=== PATIENT | female | born 1995 | race Caucasian/White ===

== ENCOUNTER 2021-01-19 11:33 | Day surgery (SDC) | payer OTHER ==
[2021-01-18 10:32] VITALS: BMI 35.9
[2021-01-19] MEDS ORDERED: Lidocaine 1% MPF 2 ML VIAL ONE (11:38)
[2021-01-19] MEDS ORDERED: PROPOFOL 20 ML ONE ×2 (13:50)
== END 2021-01-19 14:50 | disposition home or self-care (01) ==
LOC: CSHSDC 11:33
PROVIDERS: ATTEND Internal Medicine
PROC: 0DB68ZZ Excision of Stomach, Via Natural or Artificial Opening Endoscopic (ICD-10-PCS; principal; 2021-01-19)
DX: K21.9 Gastro-esophageal reflux disease without esophagitis (principal); K31.7 Polyp of stomach and duodenum; Z79.899 Other long term (current) drug therapy; E78.00 Pure hypercholesterolemia, unspecified; Z87.442 Personal history of urinary calculi
CPT/HCPCS: 88305; J2704

== ENCOUNTER 2021-10-27 14:41 | Outpatient (CLI) | payer OTHER ==
[2021-10-27 15:39] LABS: SARS-CoV-2 NAA Rapid Test DETECTED (NotDetected)
== END 2021-10-27 14:42 | disposition home or self-care (01) ==
LOC: CSHLAB 14:41
PROVIDERS: ATTEND Family Medicine
DX: U07.1 COVID-19 (principal)
CPT/HCPCS: U0002